=== PATIENT | female | born 1940 | race Two or more races ===

== ENCOUNTER 2016-04-28 08:01 | Emergency (ER) | payer OTHER ==
[2016-04-28 08:31] VITALS: BMI 32.3
--- NOTE | 2016-04-28 08:45 | PDOC ---
History of Present Illness - General History Source: Patient, Family (daughter) Exam Limitations: No Limitations - History of Present Illness Initial Comments: 04/28/16 08:53 The patient is a 75 year old female with no significant PMH who presents to Emergency Room brought by ambulance. She woke up this morning with nosebleed coming from her left side. She states that it has been coming from anterior side of her nares. She denies injury, nosebleeds in the past, taking anticoagulation, fever, chills. The pt denies SOB, sore throat, cough, chest pain, palpitations. She denies dysuria, increased frequency, N/V, diarrhea, constipation. 04/28/16 09:11 <Emmy Aguilar - Last Filed: 04/28/16 10:08> <Shell Fuentes - Last Filed: 04/28/16 10:27> - General Chief Complaint: Nasal Bleeding Stated Complaint: BLEEDING Time Seen by Provider: 04/28/16 08:21 Past History - Travel Traveled outside of the country in the last 30 days: Yes If so, where?: [place] - Psycho/Social/Smoking Cessation Hx Anxiety: No Suicidal Ideation: No Smoking History: Never smoked Have you smoked in the past 12 months: No Information on smoking cessation initiated: No Hx Alcohol Use: No Drug/Substance Use Hx: No Substance Use Type: None <Emmy Aguilar - Last Filed: 04/28/16 10:08> <Shell Fuentes - Last Filed: 04/28/16 10:27> - Past Medical History Allergies/Adverse Reactions: Allergies Allergy/AdvReac Type Severity Reaction Status Date / Time No Known Allergies Allergy Verified 04/28/16 08:09 Review of Systems - Review of Systems Able to Perform ROS?: Yes Comments:: 04/28/16 09:00 REVIEW OF SYSTEMS CONSTITUTIONAL: Absent: fever, chills, diaphoresis, generalized weakness, malaise, loss of appetite, weight change HEENT: bleeding from left nares Absent: rhinorrhea, nasal congestion, throat pain, throat swelling, difficulty swallowing, mouth swelling, ear pain, eye pain, visual changes CARDIOVASCULAR: Absent: chest pain, syncope, palpitations, irregular heart rate, lightheadedness , peripheral edema RESPIRATORY: Absent: cough, shortness of breath, dyspnea with exertion, orthopnea, wheezing, GASTROINTESTINAL: Absent: abdominal pain, abdominal distension, nausea, vomiting, diarrhea, constipation, GENITOURINARY: Absent: dysuria, frequency, urgency, hesitancy, hematuria, flank pain, genital pain MUSCULOSKELETAL: Absent: myalgia, arthralgia, joint swelling, back pain, neck pain SKIN: NEUROLOGIC: Absent: headache, focal weakness or paresthesias, dizziness, unsteady gait, seizure, mental status changes, Is the patient limited Polish proficient: No <BuckLizzyjedEmmy - Last Filed: 04/28/16 10:08> *Physical Exam - Vital Signs Last Vital Signs Temp Pulse Resp BP Pulse Ox 97.4 F L 113 H 20 165/113 99 04/28/16 08:09 04/28/16 08:09 04/28/16 08:09 04/28/16 08:09 04/28/16 08:09 - Physical Exam Comments: 04/28/16 08:58 GENERAL: The patient is awake, alert, and fully oriented, in no acute distress. HEAD: Normal with no signs of trauma. EYES: PERRL, extraocular movements intact, sclera anicteric, conjunctiva clear. No ptosis. ENT: Ears normal, oropharynx: blood clot present in left nares, no active bleeding, no bleeding seen in her throat, moist mucous membranes. NECK: Trachea midline, full range of motion, supple. LUNGS: Breath sounds equal, clear to auscultation bilaterally, no wheezes, no crackles, no accessory muscle use. HEART: Regular rate and rhythm, S1, S2 without murmur, rub or gallop. ABDOMEN: Soft, nontender, nondistended, normoactive bowel sounds, no guarding, no rebound, no hepatosplenomegaly, no masses. EXTREMITIES: no edema. NEUROLOGICAL: Normal speech, no cacial asymmetry, gait not observed. PSYCH: Normal mood, normal affect. SKIN: Warm, dry, normal turgor, no rashes or lesions noted 04/28/16 09:11 <CruzTrevorjedEmmy - Last Filed: 04/28/16 10:08> - Vital Signs Last Vital Signs Temp Pulse Resp BP Pulse Ox 98.3 F 76 16 148/90 96 04/28/16 10:01 04/28/16 10:01 04/28/16 10:01 04/28/16 10:01 04/28/16 10:01 <Shlel Fuentes - Last Filed: 04/28/16 10:27> Medical Decision Making - Medical Decision Making 04/28/16 09:02 The pt is a 75 year old female with no PMH who presents with anterior nosebleed. We administered silver nitrate to left nares. She doesn't have active bleeding now. No bleeding visible in her throat. The pt was found to have elevated BP. We will recheck. 04/28/16 09:17 BP was rechecked 135/106. Will monitor. 04/28/16 10:02 On physical exam the pt had no more bleeding coming from her nares. We discussed visiting primary care physician to check her BP. BP went down to 148/ 90. <Emmy Aguilar - Last Filed: 04/28/16 10:08> *DC/Admit/Observation/Transfer - Discharge Dispostion Admit: No <Emmy Aguilar - Last Filed: 04/28/16 10:08> <Shell Fuentes - Last Filed: 04/28/16 10:27> Diagnosis at time of Disposition: Epistaxis - Patient Instructions Printed Discharge Instructions: Nosebleed, DI for Nosebleed Additional Instructions: Please see your primary care physician to recheck your blood pressure. Avoid drinking hot liquids for 24 hours and picking/manipulating/blowing your nose, or lifting heavy objects. If you have more episodes of bleeding, dizziness, lightheadedness come to Emergency Room as soon as possible.
--- NOTE | 2016-04-28 08:54 | PDOC ---
Attending Attestation - Resident Resident Name: Emmy Aguilar - ED Attending Attestation I have performed the following: I have examined & evaluated the patient, The case was reviewed & discussed with the resident, I agree w/resident's findings & plan - HPI HPI: 04/28/16 08:50 75-year-old female with a negative past medical history, who is here from [place] She is on no medications, has no history of hypertension, and is on no blood thinners or aspirin She awakened at 6 AM this morning with a left anterior nosebleed She states the blood was coming out of her left nares, but there was no blood going down the back of her throat She denies any bleeding from the right nares She denies taking aspirin recently She denies any other complaints at this time, and does not get recurrent nosebleeds - Physicial Exam PE: 04/28/16 08:51 physical exam Last Vital Signs Temp Pulse Resp BP Pulse Ox 97.4 F L 113 H 20 165/113 99 04/28/16 08:09 04/28/16 08:09 04/28/16 08:09 04/28/16 08:09 04/28/16 08:09 Patient is alert and answering questions Head is normocephalic and atraumatic Mouth and oropharynx benign-there is no blood going down the back of her throat , and no blood in her mouth Nasal speculum exam The right nares is benign Left nares- There is a clot in the left nares, and an obvious bleeding site on the anterior septum, without active bleeding at this time Remainder of the ENT exam is benign - Medical Decision Making 04/28/16 08:53 The bleeding site on the left anterior septum was cauterized with silver nitrate Patient tolerated procedure well No active bleeding at this time will observe, reevaluate, and recheck blood pressure 04/28/16 10:02 On reexam Repeat blood pressure 148/90 Patient resting comfortably without recurrent bleeding On speculum reexam of the left nares Cautery site intact, with no bleeding at all in the left nares Impression- Epistaxis-resolved with cautery I did discuss patient's blood pressure with her, she has an appointment with a primary care physician for complete physical on May 12 as per her family 04/28/16 10:25 Vital Signs - 24 hr 04/28/16 04/28/16 04/28/16 08:09 09:02 10:01 Temperature 97.4 F L 98.3 F Pulse Rate 113 H Pulse Rate [ 76 Left Apical] Respiratory 20 16 16 Rate Blood Pressure 165/113 Blood Pressure 135/106 148/90 [Right Arm] O2 Sat by Pulse 99 96 Oximetry (%)
[2016-04-28 10:02] VITALS: BP 148/90
[2016-04-28 10:06] VITALS: PULSE 76; TEMP 98.3
== END 2016-04-28 10:33 | disposition home or self-care (01) ==
LOC: JER 08:01
PROC: 0W3Q7ZZ Control Bleeding in Respiratory Tract, Via Natural or Artificial Opening (ICD-10-PCS; principal; 2016-04-28)
DX: R04.0 Epistaxis (principal)
CPT/HCPCS: 99281-25